=== PATIENT | female | born 1940 | race Caucasian/White ===

== ENCOUNTER → 2018-03-12 08:10 | Outpatient (CLI) | payer OTHER, SELFPAY ==
[2018-03-12 09:07] LABS: Add Manual Diff / Slide Review NO; Basophils Percent Auto 1.4 % (0-2); Eosinophils Percent Auto 4.9 % (2-4); Hematocrit 37.9 % (36-46); Hemoglobin 12.3 g/dL (12.0-16.0); Lymphocytes Percent Auto 42.6 % (25-40); Mean Corpuscular HGB Conc 32.3 % (30-36); Mean Corpuscular Hemoglobin 26.4 PG (26-34); Mean Corpuscular Volume 81.8 fL (80-100); Neutrophils Absolute Auto 2200 /uL (3000-5900); Neutrophils Percent Auto 41.1 % (50-75); Platelet Count 244 X10^3/uL (150-400); Red Blood Cell Count 4.64 X10^6/uL (4.0-5.2); Red Cell Distribution Width 17.9 % (11.6-14.8); White Blood Cell Count 5.4 X10^3/uL (4.5-11.0)
== END ==
PROVIDERS: PCP Family Medicine; Visit Provider Family Medicine
DX: D70.9 Neutropenia, unspecified (principal)
CPT/HCPCS: 36415; 85025

== ENCOUNTER → 2018-08-29 15:05 | Outpatient (CLI) | payer OTHER, SELFPAY ==
--- NOTE | 2018-08-29 | DI.RAD.S_ITS ---
This blank DEXA report has been sent in error by the PACS system. The correct and complete report will be forthcoming in 1-2 days. Thank you for your patience and understanding. Dictated by: Rodney Olivas M.D. on 08/29/2018 at 16:01 Approved by: Rodney Olivas M.D. on 08/29/2018 at 16:02
== END ==
PROVIDERS: PCP Family Medicine; Visit Provider Family Medicine
DX: Z13.820 Encounter for screening for osteoporosis (principal); M85.852 Other specified disorders of bone density and structure, left thigh; Z78.0 Asymptomatic menopausal state; Z82.62 Family history of osteoporosis; Z90.722 Acquired absence of ovaries, bilateral; Z85.43 Personal history of malignant neoplasm of ovary
CPT/HCPCS: 77080

== ENCOUNTER → 2018-09-12 18:53 | Outpatient (CLI) | payer OTHER, SELFPAY ==
--- NOTE | 2018-09-12 | DI.MRI.S_ITS ---
PROCEDURE: MR LUMBAR SPINE WO CON INDICATIONS: SCIATICA TECHNIQUE: Noncontrast sagittal T1 spin echo and T2 fast echo, sagittal STIR, axial T1 and T2 fast spin echo through the lumbar spine. In cases with scoliosis, additional coronal T2 fast spin echo may be performed. COMPARISON: None. FINDINGS: Image quality: Excellent. Alignment and Curvature: There is normal bony alignment. Bone Marrow: Mild reactive endplate changes noted adjacent to the L1-L2, L2-L3, L3-L4 and L4-L5 discs. No acute vertebral body compression fractures. Spinal Cord: Conus medullaris terminates at the L1 level. Visualized cord demonstrates normal signal and size. Paraspinous Soft Tissues: No paravertebral masses. L1-L2: Loss of disc signal and height. Minimal, diffuse disc bulge. No central stenosis. No neural foraminal narrowing. No neural impingement. L2-L3: Loss of disc signal and height. Mild, diffuse disc bulge. Mild bilateral facet hypertrophy. Mild ligamentum flavum hypertrophy. Mild narrowing of the central canal. No neural foraminal narrowing. No neural impingement. L3-L4: Loss of disc signal. Mild, diffuse disc bulge. Mild bilateral facet hypertrophy. Mild ligamentum flavum hypertrophy. Mild narrowing of the central canal. No neural foraminal narrowing. No neural impingement. L4-L5: Loss of disc signal and slight loss of disc height. Moderate, diffuse disc bulge. Right foraminal disc protrusion. Right foraminal disc protrusion abuts and slightly flattens the exiting right L4 nerve root. Mild to moderate bilateral facet hypertrophy. Moderate ligamentum flavum hypertrophy. Moderate narrowing of the central canal. There is a small, proxy 7 mm in diameter synovial cyst projecting off the medial margin of the right L4-L5 facet. Synovial cyst anteriorly displaces the traversing right L5 nerve root against the L4-L5 disc causing flattened deformity of the nerve root. Moderate right neural foraminal narrowing. L5-S1: Loss of disc signal. Mild bilateral facet hypertrophy. No central stenosis. IMPRESSION: 1. Multilevel degenerative disc disease. 2. Multilevel facet arthropathy. 3. Mild L2-L3 and L3-L4 central canal narrowing. Moderate L4-L5 central canal narrowing. 4. Moderate right L4-L5 neural foraminal narrowing. 5. Right foraminal L4-L5 disc protrusion impinges on the exiting right L4 nerve root. Please correlate clinically. 6. Right L4-L5 facet synovial cyst abuts and flattens the traversing right L5 nerve root. Please correlate clinically. Dictated by: Krystal Kelsey MD, PhD on 09/13/2018 at 10:57 Approved by: Krystal Kelsey MD, PhD on 09/13/2018 at 11:07
== END ==
PROVIDERS: PCP Family Medicine; Visit Provider Family Medicine
DX: M54.42 Lumbago with sciatica, left side (principal)
CPT/HCPCS: 72148

== ENCOUNTER → 2018-10-31 10:50 | Outpatient (CLI) | payer OTHER, SELFPAY ==
--- NOTE | 2018-10-31 10:52 | DI.RAD.S_ITS ---
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 COMPARISON: [facility], MR, MR LUMBAR SPINE WO CON, 09/12/2018, 19:08. FINDINGS: Bones: 5 nonrib-bearing vertebrae are present. There is moderate levoscoliosis; otherwise normal bony alignment. No vertebral body compression fractures. No suspicious bony lesions. There is degenerative disc disease, moderate at L1-L2, L2-L3 and L4-L5, mild to moderate at L3-L4 and L5-S1. There is severe facet arthropathy at L4-L5 and L5-S1. Arge left lateral Hospi's are noted in upper lumbar spine. Soft tissues: Overlying bowel gas pattern is normal. No suspicious soft tissue calcifications. Multiple surgical clips are present in mid abdomen. Oblique images: No pars defects. IMPRESSION: 1. Moderate scoliosis. 2. Degenerative disc and facet disease as described. Dictated by: Ramirez Plaza M.D. on 10/31/2018 at 13:14 Approved by: Ramirez Plaza M.D. on 10/31/2018 at 13:17
== END ==
PROVIDERS: PCP Family Medicine; Visit Provider Physical Medicine & Rehabilitation
DX: M51.16 Intervertebral disc disorders with radiculopathy, lumbar region (principal); M51.17 Intervertebral disc disorders with radiculopathy, lumbosacral region; M41.9 Scoliosis, unspecified; M47.26 Other spondylosis with radiculopathy, lumbar region; M47.27 Other spondylosis with radiculopathy, lumbosacral region
CPT/HCPCS: 72110

== ENCOUNTER 2018-11-12 08:53 | Outpatient (CLI) | payer OTHER, SELFPAY ==
[2018-11-12] VITALS (8 sets, daily range): BP systolic 88–124; BP diastolic 63–82; PULSE 57–94; RESP 16–18; TEMP 36; O2SAT 94–100
--- NOTE | 2018-11-12 08:54 | DI.RAD.S_ITS ---
PROCEDURE: PAIN L/S TRANSFORAMINAL INJECT INDICATIONS: L4 radiculopathy FINDINGS: Fluoroscopic spot filming was performed to verify placement of spinal needles at the L4-L5 level(s), as labeled on the films. Appropriate location(s) of the needle tip(s) was confirmed by injection of iodinated contrast. IMPRESSION: Fluoroscopy for pain management. Dictated by: Ramirez Plaza M.D. on 11/12/2018 at 13:08 Approved by: Ramirez Plaza M.D. on 11/12/2018 at 13:08
[2018-11-12] MEDS: MIDAZOLAM 5 MG/5 ML VIAL IV (09:47)
[2018-11-12] MEDS: BUPIVACAINE 0.25% (PF) VIAL 2 ML INJ (09:52)
[2018-11-12] MEDS: IOPAMIDOL 15 ML VIAL 3 ML INJ (09:53)
[2018-11-12] MEDS: DEXAMETHASONE 10 MG/ML VIAL 20 MG INJ (09:53)
--- NOTE | 2018-11-12 09:55 | PC.NURSE ---
ASSISTING PT OFF TABLE AND TRANSPORTING TO POST PROC AREA IN STABLE CONDITION
--- NOTE | 2018-11-12 10:02 | P.PCN_ITS ---
Procedures Date/Time Date of procedure: 11/12/18 Time of procedure: 10:01 General Procedure description: PREOP DIAGNOSIS 1. FORMAINAL STENOSIS WITH LE SYMPTOMS POST OP DIAGNOSIS 1. FORMAINAL STENOSIS WITH LE SYMPTOMS PROCEDURES 1. FLUOROSCOPICALLY GUIDED CONTRAST CONTROLLED TRANSFORAMINAL EPIDURAL STEROID INJECTION - RIGHT L4/5 TFESI PHYSICIAN: Pito Carpio DO INDICATIONS: Tracy is referred by Dr. Schmidt for treatment of HNP with Right LE Symptoms FINDINGS Foraminal Nerve Root Compression secondary to disc disease and facet hypertrophy DESCRIPTION OF PROCEDURE: Following denial of allergy and review of potential side effects and complications, including, but not necessarily limited to, infection, allergic reaction, local tissue breakdown, stroke, temporary or permanent nerve injury, paralysis, and possible , the patient indicated that the patient understood and agreed to proceed. An informed consent document was signed by the patient, witnessed by a nurse, and placed in the patient's chart. Additionally, other treatment options including medications, modalities, and physical therapy were reviewed with the patient. After review of previous anaesthesic history and IV conscious sedation the patient was deemed safe to proceed with todays procedure with IV conscious sedation as ASA class II designation. Safety time-out was performed to confirm patient ID, procedure to be performed and site of procedure. IV sedation was accomplished with a combination of 3mg of Versed was administered by the RN after DO order, titrated to patient comfort during the course of the procedure while the patient remained responsive to all verbal commands In the prone position following sterile prep and drape of the lumbar region, the Right L4/5 posterior neuroforamen was identified fluoroscopically. The skin was anesthetized via a 25-gauge 1.5-inch needle with 1% lidocaine solution. At this point, a 25-gauge 3.5-inch spinal needle was atraumatically introduced and advanced under fluoroscopic guidance through the posterior Right L4/5 neuroforamen to approximately the anterior aspect of the canal. Depth was confirmed on lateral view. Following negative aspiration, injection of approximately 1.5 cc of Isovue 200 under live fluoroscopy in the AP view confirmed excellent flow along the nerve root, into the epidural space without vascular or intrathecal uptake observed Radiological data, including multiple fluoroscopic views of the lumbosacral spine, reveal a spinal needle at the right L4/5 posterior neuroforamen. Subsequent views show flow of contrast material flowing superiorly and inferio rly along the nerve root confirming epidural flow. Subsequently, a test dose of 1.5 cc of 1% lidocaine solution was administered and patient was observed for two minutes for signs or symptoms of complications, including abdominal pain, shortness of breath, bilateral upper or lower extremity weakness, nausea and vomiting, prior to steroid injection. At this point, a total of 2cc or 20mg of dexamethasone was injected without incident. The procedure tolerated the procedure well without signs or symptoms of complications prior to transfer to the recovery area continued monitoring without incident.The patient was then transferred to the recovery area where they were observed for an appropriate time after the injection. The patient reported a VAS score of 7 prior to the procedure and a post- procedure VAS of 0. Total Fluoroscopy Time: 20.9 seconds Total Conscious Sedation Time: 24min POST OP INSTRUCTIONS The patient was provided a Pain Log to continue to record their response to the target-specific procedure prior to follow-up visit with their referring physician. Additionally, specific post-injection care instructions and a contact number to our office were provided if concerns arise regarding possible complications associated with the procedure are suspected. Pito Carpio DO Complications: none
--- NOTE | 2018-11-12 11:50 | PC.NURSE ---
pt returned from procedure at 1000 via wheelchair, awake and alert, able to move from w/c to chair without difficulty. Resumed monitoring from Loni RODRIGUEZ.
--- NOTE | 2018-11-13 12:16 | PC.NURSE ---
FOLLOW UP CALL MADE, SPOKE WITH SPOUSE PT IS OUT OF THE HOUSE. SPOUSE STATED PT FEELS GREAT AND DENIES THAT SHE HAS ANY CONCERNS AT THIS TIME. I REMINDED HIM SHE HAS OUR NUMBER IF SHE DOES HAVE QUESTIONS/CONCERNS.
== END 2018-11-12 10:30 ==
LOC: RAD 08:53
PROVIDERS: PCP Family Medicine; Visit Provider Physical Medicine & Rehabilitation
DX: M48.061 Spinal stenosis, lumbar region without neurogenic claudication (principal); M51.16 Intervertebral disc disorders with radiculopathy, lumbar region; M47.27 Other spondylosis with radiculopathy, lumbosacral region; M41.50 Other secondary scoliosis, site unspecified
CPT/HCPCS: 64483; 99152; J1100; J2250

== ENCOUNTER → 2019-01-02 11:47 | Outpatient (CLI) | payer OTHER, SELFPAY ==
--- NOTE | 2019-01-02 | DI.MG.S_ITS ---
BILATERAL DIGITAL SCREENING MAMMOGRAM 3D/2D WITH CAD: 01/02/2019 CLINICAL: Routine screening. Comparison is made to exams dated: 12/29/2017 mammogram, 12/08/2016 mammogram, and 11/29/2015 mammogram - [facility]. There are scattered fibroglandular elements in both breasts. Current study was also evaluated with a Computer Aided Detection (CAD) system. There are benign calcifications in both breasts. No significant masses, calcifications, or other findings are seen in either breast. There has been no significant interval change. IMPRESSION: There is no mammographic evidence of malignancy. A 1 year screening mammogram is recommended. This exam was interpreted at Station ID: [id number]. NOTE: For mammograms, a report in lay terms will be sent to the patient. Approximately 15% of breast malignancies will not be visualized mammographically. In the management of a palpable breast mass, a negative mammogram must not discourage biopsy of a clinically suspicious lesion. Electronically Signed By: Inocencio ojeda/[email or web address]:01/02/2019 21:12:38 letter sent: Normal Exam ACR BI-RADS Category 2: Benign Finding(s) [id number]
== END ==
PROVIDERS: PCP Family Medicine; Visit Provider Family Medicine
DX: Z12.31 Encounter for screening mammogram for malignant neoplasm of breast (principal)
CPT/HCPCS: 77063; 77067

== ENCOUNTER → 2019-01-31 07:19 | Outpatient (CLI) | payer OTHER, SELFPAY ==
[2019-01-31 08:06] LABS: Add Manual Diff / Slide Review NO; Basophils Absolute Auto 0 /uL (0-100); Basophils Percent Auto 0.7 % (0-2); Eosinophils Absolute Auto 300 /uL (0-450); Eosinophils Percent Auto 6.1 % (2-4); Hematocrit 31.5 % (36-46); Hemoglobin 9.7 g/dL (12.0-16.0); Lymphocytes Absolute Auto 2000 /uL (1100-4500); Lymphocytes Percent Auto 41.3 % (25-40); Mean Corpuscular HGB Conc 30.9 % (30-36); Mean Corpuscular Hemoglobin 20.9 PG (26-34); Mean Corpuscular Volume 67.5 fL (80-100); Monocytes Absolute Auto 600 /uL (0-900); Monocytes Percent Auto 12.6 % (3-14); Neutrophils Absolute Auto 1900 /uL (1500-7000); Neutrophils Percent Auto 39.3 % (50-75); Platelet Count 266 X10^3/uL (150-400); Red Blood Cell Count 4.66 X10^6/uL (4.0-5.2); Red Cell Distribution Width 21.5 % (11.6-14.8); White Blood Cell Count 4.9 X10^3/uL (4.5-11.0)
[2019-01-31 08:31] LABS: Hypochromasia 2+; Microcytosis 3+; Polychromasia 1+
[2019-01-31 08:50] LABS: Alanine Aminotransferase 19 IU/L (9-52); Albumin 4.3 g/dL (3.5-5.0); Albumin Globulin Ratio 1.3 (1.0-2.8); Alkaline Phosphatase 56 U/L (38-126); Aspartate Aminotransferase 27 IU/L (14-36); BUN Creatinine Ratio 23.8 (6-22); Bilirubin Total 0.9 mg/dL (0.2-1.3); Blood Urea Nitrogen 19 mg/dL (7-17); Calcium 9.2 mg/dL (8.4-10.2); Carbon Dioxide 29 mmol/L (22-32); Chloride 98 mmol/L (98-107); Cholesterol 129 mg/dL (140-199); Estimated Glomerular Filt Rate > 60.0 mL/min (>60); Globulin 3.3 g/dL (1.7-4.1); Glucose 102 mg/dL (80-110); HDL Cholesterol 36 mg/dL (40-60); HEMOLYSIS < 15 (0-50); LDL Cholesterol Calculated 67 mg/dL (<100); Sodium 137 mmol/L (137-145); Total Protein 7.6 g/dL (6.3-8.2); Triglycerides 131 mg/dL (35-150)
[2019-01-31 10:06] LABS: Thyroid Stimulating Hormone 2.73 uIU/mL (0.47-4.68)
== END ==
PROVIDERS: PCP Family Medicine; Visit Provider Family Medicine
DX: E78.5 Hyperlipidemia, unspecified (principal); I10 Essential (primary) hypertension; D70.9 Neutropenia, unspecified; Z00.00 Encounter for general adult medical examination without abnormal findings
CPT/HCPCS: 36415; 80053; 80061; 84443; 85025

== ENCOUNTER 2019-03-25 08:06 | Outpatient (CLI) | payer OTHER, SELFPAY ==
[2019-03-25] VITALS (9 sets, daily range): BP systolic 91–126; BP diastolic 37–70; PULSE 56–63; RESP 16; TEMP 36.1; O2SAT 93–100
--- NOTE | 2019-03-25 08:07 | DI.RAD.S_ITS ---
PROCEDURE: PAIN L/SI FACET INJ/BLK 1STL INDICATIONS: RADICULOPATHY FINDINGS: Fluoroscopic spot filming was performed to verify placement of spinal needles at the right L3-L4 and L4-L5 level(s), as labeled on the films. Appropriate location(s) of the needle tip(s) was confirmed by injection of iodinated contrast. IMPRESSION: Intraprocedural examination within normal limits. Dictated by: Edwin Santiago M.D. on 03/25/2019 at 12:27 Approved by: Edwin Santiago M.D. on 03/25/2019 at 12:27
[2019-03-25] MEDS: MIDAZOLAM 5 MG/5 ML VIAL IV (09:28)
[2019-03-25] MEDS: fentaNYL 100 MCG/2 ML INJ 50 MCG IV (09:28)
[2019-03-25] MEDS: BETAMETHASONE 30 MG/5 ML MDV 12 MG INJ (09:33)
[2019-03-25] MEDS: BUPIVACAINE 0.5% (PF) VIAL 2 ML INJ (09:33)
[2019-03-25] MEDS: LIDOCAINE 1% 20 ML INJ 10 ML INJ (09:33)
[2019-03-25] MEDS: IOPAMIDOL 15 ML VIAL 3 ML INJ (09:33)
--- NOTE | 2019-03-25 09:34 | PC.NURSE ---
assisting pt off table and transporting to post proc area in stable condition
--- NOTE | 2019-03-25 09:41 | P.PCN_ITS ---
Procedures Date/Time Date of procedure: 03/25/19 Time of procedure: 09:40 General Procedure description: PREOP DIAGNOSIS 1. FACET ARTHROPATHY, 2. AXIAL LBP, 3. MULTILEVEL DDD, POST OP DIAGNOSIS 1. FACET ARTHROPATHY, 2. AXIAL LBP, 3. MULTILEVEL DDD, PROCEDURES 1. FLUORSCOPICALLY GUIDED CONTRAST CONTROLLED FACET JOINT INJECTIONS RIGHT L3/4, L4/5 SURGEON: Pito Carpio, DO INDICATIONS Tracy is referred by for treatment of Axial LBP FINDINGS Multilevel Facet Arthropathy with Clinically significant axial LBP DESCRIPTION OF PROCEDURE Fluoroscopically guided, contrast-controlled right L3/4, L4/5 facet joint i njections. Following review of allergy and review of potential side effects and complications, including, but not necessarily limited to, infection, allergic reaction, local tissue breakdown, stroke, temporary or permanent nerve injury, paralysis, and possible , the patient indicated that the patient understood and agreed to proceed. An informed consent document was signed by the patient, witnessed by a nurse, and placed in the patient's chart. Additionally, other treatment options including medications, modalities, and physical therapy were reviewed with the patient. After review of previous anaesthesic history and IV conscious sedation the patient was deemed safe to proceed with todays procedure with IV conscious sedation as ASA class II designation. Safety time-out was performed to confirm patient ID, procedure to be performed and site of procedure. IV sedation was accomplished with a combination of 3mg of Versed and 50mcg of Fentanyl was administered by the RN after DO order, titrated to patient comfort during the course of the procedure while the patient remained responsive to all verbal commands. In the prone position, following sterile prep and drape of the lumbar region, the posterior aspect of the right L3/4, L4/5 facet joints were identified fluoroscopically. The skin was anesthetized via a 25-gauge 1.5-inch needle with 1% lidocaine solution into the corresponding facet joints. At this point, a 22- gauge 3.5-inch spinal needle was atraumatically introduced and advanced under fluoroscopic guidance into the corresponding facet joints. Following negative aspiration, injections of approximately 0.2-cc of Isovue 200 confirmed interarticular placement without vascular uptake. Radiological data, including multiple fluoroscopic views of the lumbosacral spine, reveal a spinal needle at the right L3/4, L4/5 facet joints. Subsequent views show flow of contrast material both superiorly and inferiorly within the joint space without vascular or intrathecal uptake. At this point, a total of 0.5 cc including a mixture of 0.25 cc Marcaine and 0.25 cc betamethasone was injected without complication into each of the corresponding facet joints. The patient tolerated the procedure well without signs or symptoms of complications prior to transfer to the recovery area for further monitoring. The patient was then transferred to the recovery area where they were observed for an appropriate period of time after the injection. The patient reported a VAS score of 7 prior to the procedure and a post-procedure VAS of 0. Total Fluoroscopy Time: 12.7 seconds Total Conscious Sedation Time: 24min POST OP INSTRUCTIONS The patient was provided a Pain Log to continue to record their response to the target-specific procedure prior to follow-up visit with their referring physician. Additionally, specific post-injection care instructions and a contact number to our office were provided if concerns arise regarding possible complications associated with the procedure are suspected Complications: none
--- NOTE | 2019-03-25 09:41 | PC.NURSE ---
Pt returned via wheelchair awake and alert, able to move from w/c to chair with standby assist. Resumed monitoring from Loni RODRIGUEZ.
== END 2019-03-25 10:19 ==
LOC: RAD 08:07
PROVIDERS: PCP Student in an Organized Health Care Education/Training Program; Visit Provider Physical Medicine & Rehabilitation
DX: M47.816 Spondylosis without myelopathy or radiculopathy, lumbar region (principal); M51.36 Other intervertebral disc degeneration, lumbar region; M54.5 Low back pain
CPT/HCPCS: 64493; 64494; 99152; J0702; J2250; J3010

== ENCOUNTER 2019-05-15 09:04 | Outpatient (CLI) | payer OTHER, SELFPAY ==
[2019-05-15] VITALS (8 sets, daily range): BP systolic 105–142; BP diastolic 56–89; PULSE 56–65; RESP 16; TEMP 36.3; O2SAT 95–99
--- NOTE | 2019-05-15 09:06 | DI.RAD.S_ITS ---
PROCEDURE: PAIN L/S TRANSFORAMINAL INJECT INDICATIONS: Pain FINDINGS: Fluoroscopic spot filming was performed to verify placement of spinal needles at the L4-5 level(s), as labeled on the films. Appropriate location(s) of the needle tip(s) was confirmed by injection of iodinated contrast. IMPRESSION: Fluoroscopic needle placement as above. Dictated by: Elen Nicholas M.D. on 05/15/2019 at 18:27 Approved by: Elen Nicholas M.D. on 05/15/2019 at 18:27
[2019-05-15] MEDS: fentaNYL 100 MCG/2 ML INJ 50 MCG IV (10:00)
[2019-05-15] MEDS: MIDAZOLAM 5 MG/5 ML VIAL IV (10:00)
[2019-05-15] MEDS: IOPAMIDOL 15 ML VIAL 3 ML INJ (10:09)
[2019-05-15] MEDS: BETAMETHASONE 30 MG/5 ML MDV 12 MG INJ (10:09)
--- NOTE | 2019-05-15 10:19 | P.PCN_ITS ---
Procedures Date/Time Date of procedure: 05/15/19 Time of procedure: 10:19 General Procedure description: PREOP DIAGNOSIS 1. FORMAINAL STENOSIS WITH LE SYMPTOMS POST OP DIAGNOSIS 1. FORMAINAL STENOSIS WITH LE SYMPTOMS PROCEDURES 1. FLUOROSCOPICALLY GUIDED CONTRAST CONTROLLED TRANSFORAMINAL EPIDURAL STEROID INJECTION - RIGHT L4/5 TFESI PHYSICIAN: Pito Carpio DO INDICATIONS: Tracy is referred by for treatment of Foraminal Stenosis with Right LE Symptoms FINDINGS Foraminal Nerve Root Compression secondary to disc disease and facet hypertrophy DESCRIPTION OF PROCEDURE: Following review of allergy and review of potential side effects and complications, including, but not necessarily limited to, infection, allergic reaction, local tissue breakdown, stroke, temporary or permanent nerve injury, paralysis, and possible , the patient indicated that the patient understood and agreed to proceed. An informed consent document was signed by the patient, witnessed by a nurse, and placed in the patient's chart. Additionally, other treatment options including medications, modalities, and physical therapy were reviewed with the patient. After review of previous anaesthesic history and IV conscious sedation the patient was deemed safe to proceed with todays procedure with IV conscious sedation as ASA class II designation. Safety time-out was performed to confirm patient ID, procedure to be performed and site of procedure. IV sedation was accomplished with a combination of 2mg of Versed and 50mcg of Fentanyl was administered by the RN after DO order, titrated to patient comfort during the course of the procedure while the patient remained responsive to all verbal commands In the prone position following sterile prep and drape of the lumbar region, the Right L4/5 posterior neuroforamen was identified fluoroscopically. The skin was anesthetized via a 25-gauge 1.5-inch needle with 1% lidocaine solution. At this point, a 25-gauge 3.5-inch spinal needle was atraumatically introduced and adva nced under fluoroscopic guidance through the posterior Right L4/5 neuroforamen to approximately the anterior aspect of the canal. Depth was confirmed on lateral view. Following negative aspiration, injection of approximately 1.5 cc of Isovue 200 under live fluoroscopy in the AP view confirmed excellent flow along the nerve root, into the epidural space without vascular or intrathecal uptake observed Radiological data, including multiple fluoroscopic views of the lumbosacral spine, reveal a spinal needle at the right L4/5 posterior neuroforamen. Subsequent views show flow of contrast material flowing superiorly and inferiorly along the nerve root confirming epidural flow. Subsequently, a test dose of 1.5 cc of 1% lidocaine solution was administered and patient was observed for two minutes for signs or symptoms of complications, including abdominal pain, shortness of breath, bilateral upper or lower extremity weakness, nausea and vomiting, prior to steroid injection. At this po int, a total of 3cc or 20mg of dexamethasone and 6mg of betamethasone was injected without incident. The procedure tolerated the procedure well without signs or symptoms of complications prior to transfer to the recovery area continued monitoring without incident.The patient was then transferred to the recovery area where they were observed for an appropriate time after the injection. The patient reported a VAS score of 7 prior to the procedure and a post- procedure VAS of 0. Total Fluoroscopy Time: 20.9 seconds Total Conscious Sedation Time: 24min POST OP INSTRUCTIONS The patient was provided a Pain Log to continue to record their response to the target-specific procedure prior to follow-up visit with their referring physician. Additionally, specific post-injection care instructions and a contact number to our office were provided if concerns arise regarding possible complications associated with the procedure are suspected. Pito Carpio, Complications: none
--- NOTE | 2019-05-15 10:19 | PC.NURSE ---
pt tolerated procedure well. Able to get off the table with standby assist. Transferred pt via wheelchair to pre procedure room for continued monitorin with Loni RODRIGUEZ.
--- NOTE | 2019-05-15 10:27 | PC.NURSE ---
ACCEPTED CARE OF PT IN POST PROC AREA IN STABLE CONDITION
[2019-05-15] MEDS: BUPIVACAINE 0.25% (PF) VIAL 2 ML INJ (10:32)
[2019-05-15] MEDS: DEXAMETHASONE 10 MG/ML VIAL 20 MG INJ (10:32)
== END 2019-05-15 11:41 | disposition home or self-care (01) ==
LOC: RAD 09:06
PROVIDERS: Family Provider Student in an Organized Health Care Education/Training Program; PCP Student in an Organized Health Care Education/Training Program; Visit Provider Physical Medicine & Rehabilitation
DX: M48.061 Spinal stenosis, lumbar region without neurogenic claudication (principal); M51.16 Intervertebral disc disorders with radiculopathy, lumbar region; M47.27 Other spondylosis with radiculopathy, lumbosacral region
CPT/HCPCS: 64483; 99152; J0702; J1100; J2250; J3010

== ENCOUNTER 2020-05-23 19:15 | Emergency (ER) | payer OTHER, SELFPAY ==
[2020-05-23] VITALS (7 sets, daily range): BP systolic 129–154; BP diastolic 69–77; PULSE 92–112; RESP 20–24; TEMP 37.3–37.5; O2SAT 92–94; BMI 33.9
--- NOTE | 2020-05-23 19:33 | ED.FEMALEGU ---
HPI - Female Genitourinary <NOAM Ralph - Last Filed: 05/23/20 21:21> General Chief complaint: Urogenital-Female Stated complaint: thinks she has a UTI Time Seen by Provider: 05/23/20 19:18 Source: patient Mode of arrival: Ambulatory Limitations: no limitations History of Present Illness HPI Narrative: This is a 80-year-old female, who has history of hyperlipidemia, hypertension, anemia, presents to ED with spouse with chief complain of feeling crummy with body aches for last couple of days and today she developed urinary burning discomfort and feeling feverish with Tmax of 99.3 at home. Patient reports her symptoms are similar to previous UTI/bladder infection including body aches. Patient denies chills, nausea or vomiting, or flank pain. Patient denies recent travel or known exposure to person who has COVID-19. Related Data Home Medications Medication Instructions Recorded Confirmed aspirin [Tavon Advanced] 250 mg PO Q DAY #0 10/03/16 08/25/19 atenolol 25 mg tablet 25 mg PO DAILY 03/04/19 08/25/19 estradiol 1 mg tablet 1 mg PO .every other day tab 03/04/19 08/25/19 hydrochlorothiazide 12.5 mg capsule 12.5 mg PO DAILY 03/04/19 08/25/19 lisinopril 30 mg tablet 30 mg PO DAILY 03/04/19 08/25/19 simvastatin 10 mg tablet 10 mg PO BEDTIME 03/04/19 08/25/19 Previous Rx's Medication Instructions Recorded Disabled Parking Permit #1 each 04/09/19 gabapentin 100 mg capsule 100 mg PO BID #120 cap MDD 1-3 up 05/28/19 to twice a day duloxetine 20 mg capsule,delayed 20 mg PO .COMPLEX #90 cap MDD 60 mg 06/11/19 release estradiol See Rx Instructions .ROUTE 04/26/20 .COMPLEX #42.5 gram cephalexin [Keflex] 500 mg PO BID 7 Days #14 cap 05/23/20 Allergies Allergy/AdvReac Type Severity Reaction Status Date / Time meclizine Allergy Intermediate Hives Verified 08/25/19 09:44 Review of Systems <NOAM Ralph - Last Filed: 05/23/20 21:21> Review of Systems Narrative: General: See HPI HEENT: Denies sinus pain, ear pain, sore throat, difficulty swallowing, dizziness. Respiratory: Denies dyspnea, cough, wheezing, hemoptysis, sputum. Cardiovascular: Denies chest pain, palpitations, orthopnea, edema. Gastrointestinal: Denies nausea, vomiting, abdominal pain, diarrhea, constipation, melena. : See HPI Musculoskeletal: See HPI Skin: Denies rash, skin lesions, or other. Neurologic: Denies weakness, headache, numbness, change in speech, confusion, seizures, incoordination. Psychiatric: No concerning psychosocial issues. 12-point review of systems is negative except for those stated above. 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 Head: Normal cephalic, atraumatic. No scalp or temporal tenderness, palpable mass or rash. EYES: Pupils are equal, round, and reactive to light and accommodation. Extraocular muscles are intact bilaterally. There is no subconjunctival hemorrhage, exudate and sclera non-icteric. ENT: Hearing grossly intact. Nose without bleeding, purulent discharge or deviation. Airway patent. Dried oral mucous membrane. Neck: Trachea in midline. No JVD, non-tender without lymphadenopathy. No masses or thyroid megaly. Supple, non-tender and no meningeal signs. CARDIAC: Normal regular rate and rhythm without murmurs, gallops, or rubs. No chest wall tenderness. No peripheral edema, cyanosis or pallor. Capillary refill is less than 2 seconds. RESPIRATORY: Lungs are clear to auscultate bilaterally. No cough, wheezes, rales, or rhonchi. No stridor, respiratory distress, increase work of breathing, or accessary muscle used. ABD: Abdomen soft, nontender and non-distended. No guarding or rebound tenderness to palpate. Bowel sounds are normal in all 4 quadrants. There is no palpable masses or organomegaly. EXT: Full painless ROM of all extremities with no loss of sensation, strength, effusion or edema. SKIN: Warm, dry, normal color for patient. No erythema, lesions or rash over visible areas. BACK: Nontender without deformity or crepitance. No flank tenderness. NEUROLOGICAL: Alert and oriented to place, time and person. Sensation and motor function intact bilaterally. No facial droops, dysphasia. PSYCHIATRIC: Good judgement and reason, without hallucinations, abnormal affect or abnormal behaviors during the examination. Patient is not suicidal. Initial Vital Signs Initial Vital Signs: Vital Signs Pulse Rate 112 H 05/23/20 19:24 Blood Pressure 129/77 05/23/20 19:24 Pulse Oximetry 92 05/23/20 19:24 <Meño Strong DO - Last Filed: 05/23/20 23:09> Initial Vital Signs Initial Vital Signs: Vital Signs Pulse Rate 112 H 05/23/20 19:24 Blood Pressure 129/77 05/23/20 19:24 Pulse Oximetry 92 05/23/20 19:24 Scores <NOAM Ralph - Last Filed: 05/23/20 21:21> GCS [place] coma scale eye opening: Spontaneous [place] coma scale verbal response: Orientated [place] coma scale motor response: Obey commands [place] coma scale total score: 15 qSOFA Altered Mental Status (GCS <15): No Respiratory rate greater than/equal to 22: No Systolic blood pressure less than or equal to 100: No qSOFA Total: 0 0-1 Not High Risk 1-3 High risk Course <NOAM Ralph - Last Filed: 05/23/20 21:21> Orders Ordered: ED Orders 05/23/20 19:26 Urine Culture Stat Urine Microscopic Stat 05/23/20 19:42 Blood Culture Stat Complete Blood Count AUTO DIFF Stat Comprehensive Metabolic Panel Stat Lactate (Lactic Acid) Stat Procalcitonin Stat Discontinued Medications Acetaminophen (Tylenol) 650 mg PO NOW ONE Stop: 05/23/20 19:32 Last Admin: 05/23/20 19:42 Dose: 650 mg Documented by: KARYNA Sodium Chloride (Normal Saline 0.9%) 500 mls @ 1,000 mls/hr IV BOLUS ONE Stop: 05/23/20 20:00 Last Infusion: 05/23/20 20:17 Dose: 0 mls/hr Documented by: Admin: 05/23/20 19:41 Dose: 1,000 mls/hr Documented by: KARYNA Ceftriaxone Sodium/Dextrose (Rocephin) 1 gm in 50 mls @ 100 mls/hr IV NOW ONE Stop: 05/23/20 20:43 Last Infusion: 05/23/20 20:53 Dose: 0 mls/hr Documented by: Admin: 05/23/20 20:23 Dose: 100 mls/hr Documented by: ROMEO Ketorolac Tromethamine (Toradol) 15 mg IV NOW ONE Stop: 05/23/20 20:15 Last Admin: 05/23/20 20:22 Dose: 15 mg Documented by: ROMEO Vital Signs Vital signs: Vital Signs - 8 hr 05/23/20 19:24 05/23/20 19:26 05/23/20 19:30 Temperature 99.5 F Pulse Rate 112 H 110 H 104 H Respiratory Rate 20 22 Blood Pressure 129/77 129/77 Pulse Oximetry 92 93 94 05/23/20 20:00 05/23/20 20:30 05/23/20 20:47 Temperature Pulse Rate 98 H 93 H 92 H Respiratory Rate 24 23 20 Blood Pressure 154/69 H Pulse Oximetry 92 93 94 05/23/20 20:50 Temperature 99.2 F Pulse Rate Respiratory Rate Blood Pressure Pulse Oximetry <Meño Strong DO - Last Filed: 05/23/20 23:09> Orders Ordered: ED Orders 05/23/20 19:26 Urine Culture Stat Urine Microscopic Stat 05/23/20 19:42 Blood Culture Stat Complete Blood Count AUTO DIFF Stat Comprehensive Metabolic Panel Stat Lactate (Lactic Acid) Stat Procalcitonin Stat Discontinued Medications Acetaminophen (Tylenol) 650 mg PO NOW ONE Stop: 05/23/20 19:32 Last Admin: 05/23/20 19:42 Dose: 650 mg Documented by: KARYNA Sodium Chloride (Normal Saline 0.9%) 500 mls @ 1,000 mls/hr IV BOLUS ONE Stop: 05/23/20 20:00 Last Infusion: 05/23/20 20:17 Dose: 0 mls/hr Documented by: Admin: 05/23/20 19:41 Dose: 1,000 mls/hr Documented by: KARYNA Ceftriaxone Sodium/Dextrose (Rocephin) 1 gm in 50 mls @ 100 mls/hr IV NOW ONE Stop: 05/23/20 20:43 Last Infusion: 05/23/20 20:53 Dose: 0 mls/hr Documented by: Admin: 05/23/20 20:23 Dose: 100 mls/hr Documented by: ROMEO Ketorolac Tromethamine (Toradol) 15 mg IV NOW ONE Stop: 05/23/20 20:15 Last Admin: 05/23/20 20:22 Dose: 15 mg Documented by: ROMEO Vital Signs Vital signs: Vital Signs - 8 hr 05/23/20 19:24 05/23/20 19:26 05/23/20 19:30 Temperature 99.5 F Pulse Rate 112 H 110 H 104 H Respiratory Rate 20 22 Blood Pressure 129/77 129/77 Pulse Oximetry 92 93 94 05/23/20 20:00 05/23/20 20:30 05/23/20 20:47 Temperature Pulse Rate 98 H 93 H 92 H Respiratory Rate 24 23 20 Blood Pressure 154/69 H Pulse Oximetry 92 93 94 05/23/20 20:50 Temperature 99.2 F Pulse Rate Respiratory Rate Blood Pressure Pulse Oximetry MDM - Female Genitourinary <NOAM Ralph - Last Filed: 05/23/20 21:21> Differential Diagnosis Differential diagnosis: Likely urinary tract infection and other (Pyelonephritis, sepsis) Medical Records Attestation: I reviewed the patient's medical records. Lab Data Attestation: I reviewed the patient's lab results. Result diagrams: 05/23/20 19:42 05/23/20 19:42 Labs: Lab Results 05/23/20 05/23/20 05/23/20 Range/Units 19:26 19:42 19:42 WBC 6.0 (4.5-11.0) X10^3/uL RBC 4.51 (4.0-5.2) X10^6/uL Hgb 15.1 (12.0-16.0) g/dL Hct 44.2 (36-46) % MCV 98.1 (80-100) fL MCH 33.5 (26-34) PG MCHC 34.1 (30-36) % RDW 13.1 (11.6-14.8) % Plt Count 135 L (150-400) X10^3/uL Neut % (Auto) 40.0 L (50-75) % Lymph % (Auto) 44.9 H (25-40) % [place] % (Auto) 12.4 (3-14) % Eos % (Auto) 1.8 L (2-4) % Baso % (Auto) 0.9 (0-2) % Neut # (Auto) 2400 (6826-7720) /uL Lymph # (Auto) 2700 (4678-5212) /uL [place] # (Auto) 700 (0-900) /uL Eos # (Auto) 100 (0-450) /uL Baso # (Auto) 100 (0-100) /uL Sodium 134 L (137-145) mmol/L Potassium 3.7 (3.4-5.1) mmol/L Chloride 97 L (98-107) mmol/L Carbon Dioxide 31 (22-32) mmol/L BUN 16 (7-17) mg/dL Creatinine 0.67 (0.52-1.04) mg/dL Estimated GFR > 60.0 (>60) mL/min BUN/Creatinine Ratio 23.9 H (6-22) Glucose 151 H (80-110) mg/dL Lactate (0.7-2.1) mmol/L Calcium 9.4 (8.4-10.2) mg/dL Total Bilirubin 0.6 (0.2-1.3) mg/dL AST 57 H (14-36) IU/L ALT 69 H (<35) IU/L Alkaline Phosphatase 69 (38-126) U/L Total Protein 7.7 (6.3-8.2) g/dL Albumin 4.0 (3.5-5.0) g/dL Globulin 3.7 (1.7-4.1) g/dL Albumin/Globulin Ratio 1.1 (1.0-2.8) Procalcitonin (<0.5) ng/mL Urine RBC None seen (0-5/HPF) Urine WBC 10-30/hpf H (0-5/HPF) Ur Squamous Epith Cells 1-5 /hpf (0-5/HPF) Urine Bacteria Moderate (10-30) H (None) Ur Culture Indicated? Specimen cultured 05/23/20 05/23/20 Range/Units 19:42 19:42 WBC (4.5-11.0) X10^3/uL RBC (4.0-5.2) X10^6/uL Hgb (12.0-16.0) g/dL Hct (36-46) % MCV (80-100) fL MCH (26-34) PG MCHC (30-36) % RDW (11.6-14.8) % Plt Count (150-400) X10^3/uL Neut % (Auto) (50-75) % Lymph % (Auto) (25-40) % [place] % (Auto) (3-14) % Eos % (Auto) (2-4) % Baso % (Auto) (0-2) % Neut # (Auto) (2534-2361) /uL Lymph # (Auto) (1155-9316) /uL [place] # (Auto) (0-900) /uL Eos # (Auto) (0-450) /uL Baso # (Auto) (0-100) /uL Sodium (137-145) mmol/L Potassium (3.4-5.1) mmol/L Chloride (98-107) mmol/L Carbon Dioxide (22-32) mmol/L BUN (7-17) mg/dL Creatinine (0.52-1.04) mg/dL Estimated GFR (>60) mL/min BUN/Creatinine Ratio (6-22) Glucose (80-110) mg/dL Lactate 1.4 (0.7-2.1) mmol/L Calcium (8.4-10.2) mg/dL Total Bilirubin (0.2-1.3) mg/dL AST (14-36) IU/L ALT (<35) IU/L Alkaline Phosphatase (38-126) U/L Total Protein (6.3-8.2) g/dL Albumin (3.5-5.0) g/dL Globulin (1.7-4.1) g/dL Albumin/Globulin Ratio (1.0-2.8) Procalcitonin 0.11 (<0.5) ng/mL Urine RBC (0-5/HPF) Urine WBC (0-5/HPF) Ur Squamous Epith Cells (0-5/HPF) Urine Bacteria (None) Ur Culture Indicated? Urine Dip Bedside Urine Glucose Negative Bedside Urine Bilirubin - Negative Bedside Urine Ketone - Negative Urine Specific [place] 1.010 Bedside Urine Occult Blood - Negative Bedside Urine pH 6.5 Bedside Urine Protein - Negative Bedside Urine Urobilinogen - Negative Bedside Urine Nitrite - Negative Bedside Urine Leukocytes +++ 500 Esterase MDM Narrative Medical decision making narrative: This is a 80 year female who presents to ED with urinary burning sensation and body aches and joint pain for last 2 days. Patient reports occasional UTIs and the last one was 5 years ago and reports has similar symptoms in the past with body aches and joint pain. Patient denies vomiting or flank pain. Patient reports T-max as 99.3 F at home. Given Initial vital signs at triage with heart rate greater than 112 with temperature as 99.5 F, concerned for urosepsis. CBC without leukocytosis. Normal lactate and procalcitonin. Slightly decreased sodium and chloride today. Urine test shows 3+ urine leukoesterase and negative nitrites with moderate urine WBC of 10-30/hpf and moderate urine bacteria. Urine culture is pending. With patient's advanced age, mildly elevated temperature with tachycardia, patient was medicated with IV Rocephin 1 g with IV fluid 500 ml for UTI. Patient was also medicated with Tylenol and IV Toradol for discomfort in ED. patient's heart rate has improved to 90s with slightly elevated BP as 154/69. Patient reports discomfort has not completely resolved at this time. Patient discharged to home with Keflex b.i.d. course for 7 day duration and advised to start tomorrow. Patient advised to follow-up with Dr. Blackwell next week for follow-up. Return precautions were discussed with patient and patient verbalized understanding and agreement with the treatment plan. <Meño Strong DO - Last Filed: 05/23/20 23:09> Lab Data Labs: Lab Results 05/23/20 05/23/20 05/23/20 Range/Units 19:26 19:42 19:42 WBC 6.0 (4.5-11.0) X10^3/uL RBC 4.51 (4.0-5.2) X10^6/uL Hgb 15.1 (12.0-16.0) g/dL Hct 44.2 (36-46) % MCV 98.1 (80-100) fL MCH 33.5 (26-34) PG MCHC 34.1 (30-36) % RDW 13.1 (11.6-14.8) % Plt Count 135 L (150-400) X10^3/uL Neut % (Auto) 40.0 L (50-75) % Lymph % (Auto) 44.9 H (25-40) % [place] % (Auto) 12.4 (3-14) % Eos % (Auto) 1.8 L (2-4) % Baso % (Auto) 0.9 (0-2) % Neut # (Auto) 2400 (0257-7618) /uL Lymph # (Auto) 2700 (3687-5969) /uL [place] # (Auto) 700 (0-900) /uL Eos # (Auto) 100 (0-450) /uL Baso # (Auto) 100 (0-100) /uL Sodium 134 L (137-145) mmol/L Potassium 3.7 (3.4-5.1) mmol/L Chloride 97 L (98-107) mmol/L Carbon Dioxide 31 (22-32) mmol/L BUN 16 (7-17) mg/dL Creatinine 0.67 (0.52-1.04) mg/dL Estimated GFR > 60.0 (>60) mL/min BUN/Creatinine Ratio 23.9 H (6-22) Glucose 151 H (80-110) mg/dL Lactate (0.7-2.1) mmol/L Calcium 9.4 (8.4-10.2) mg/dL Total Bilirubin 0.6 (0.2-1.3) mg/dL AST 57 H (14-36) IU/L ALT 69 H (<35) IU/L Alkaline Phosphatase 69 (38-126) U/L Total Protein 7.7 (6.3-8.2) g/dL Albumin 4.0 (3.5-5.0) g/dL Globulin 3.7 (1.7-4.1) g/dL Albumin/Globulin Ratio 1.1 (1.0-2.8) Procalcitonin (<0.5) ng/mL Urine RBC None seen (0-5/HPF) Urine WBC 10-30/hpf H (0-5/HPF) Ur Squamous Epith Cells 1-5 /hpf (0-5/HPF) Urine Bacteria Moderate (10-30) H (None) Ur Culture Indicated? Specimen cultured 05/23/20 05/23/20 Range/Units 19:42 19:42 WBC (4.5-11.0) X10^3/uL RBC (4.0-5.2) X10^6/uL Hgb (12.0-16.0) g/dL Hct (36-46) % MCV (80-100) fL MCH (26-34) PG MCHC (30-36) % RDW (11.6-14.8) % Plt Count (150-400) X10^3/uL Neut % (Auto) (50-75) % Lymph % (Auto) (25-40) % [place] % (Auto) (3-14) % Eos % (Auto) (2-4) % Baso % (Auto) (0-2) % Neut # (Auto) (3768-0881) /uL Lymph # (Auto) (0658-7115) /uL [place] # (Auto) (0-900) /uL Eos # (Auto) (0-450) /uL Baso # (Auto) (0-100) /uL Sodium (137-145) mmol/L Potassium (3.4-5.1) mmol/L Chloride (98-107) mmol/L Carbon Dioxide (22-32) mmol/L BUN (7-17) mg/dL Creatinine (0.52-1.04) mg/dL Estimated GFR (>60) mL/min BUN/Creatinine Ratio (6-22) Glucose (80-110) mg/dL Lactate 1.4 (0.7-2.1) mmol/L Calcium (8.4-10.2) mg/dL Total Bilirubin (0.2-1.3) mg/dL AST (14-36) IU/L ALT (<35) IU/L Alkaline Phosphatase (38-126) U/L Total Protein (6.3-8.2) g/dL Albumin (3.5-5.0) g/dL Globulin (1.7-4.1) g/dL Albumin/Globulin Ratio (1.0-2.8) Procalcitonin 0.11 (<0.5) ng/mL Urine RBC (0-5/HPF) Urine WBC (0-5/HPF) Ur Squamous Epith Cells (0-5/HPF) Urine Bacteria (None) Ur Culture Indicated? Urine Dip Bedside Urine Glucose Negative Bedside Urine Bilirubin - Negative Bedside Urine Ketone - Negative Urine Specific [place] 1.010 Bedside Urine Occult Blood - Negative Bedside Urine pH 6.5 Bedside Urine Protein - Negative Bedside Urine Urobilinogen - Negative Bedside Urine Nitrite - Negative Bedside Urine Leukocytes +++ 500 Esterase Discharge Plan Departure Patient Disposition: Home Clinical Impression: Acute UTI Discharge Date/Time: 05/23/20 21:03 Instructions: DI for Urinary Tract Infection (UTI) Activity Restrictions/Additional Instructions: You have been diagnosed with [urinary tract infection. You were medicated with IV fluid, Tylenol, Toradol and IV Rocephin ED. Normal white count and blood count including lactate and procalcitonin indicating severe infection or anemia. Today's platelet count was very mildly decreased to 135. Mildly decreased sodium and chloride as 134 and 97 with normal kidney function test. Mildly elevated liver function test of AST of 57 and ALT of 69. Urine test indicates infection and urine culture is pending.]. What to do: *Take your medications as directed. Please start Keflex tomorrow and continue with twice a day for next 7 days. You receive a phone call if you require different antibiotic medication for urine culture test. Keflex has been transmitted--> [facility]. Please hydrate well and you can add electrolyte in your drink. You can also Tylenol and ibuprofen as needed for discomfort, fever. *Follow up with your primary care provider in 2-3 days, call for an appointment. Let them know you were seen in the ED and that we asked you to be seen in follow up. *Return to ED if you have any new, worsening, or concerning symptoms, such as [flank pain, fever and chills, chest pain, breathing difficulty, unusual behavior, feeling like fainting, unable to tolerate fluids or medications, flank pain or any acute concerns]. Prescriptions: New cephalexin [Keflex] 500 mg capsule 500 mg PO BID 7 Days Qty: 14 RF: 0 No Action aspirin [Tavon Advanced] 500 MG tablet 250 mg PO Q DAY Qty: 0 RF: 0 (DME) Disabled Parking Permit 0 .ROUTE .MEDSUPPLY Qty: 1 RF: 0 duloxetine 20 mg capsule,delayed release(DR/EC) 20 mg PO .COMPLEX MDD 60 mg Qty: 90 RF: 5 estradiol 0.01 % (0.1 mg/gram) cream See Rx Instructions .ROUTE .COMPLEX Qty: 42.5 RF: 2 atenolol 25 mg tablet 25 mg PO DAILY RF: 0 lisinopril 30 mg tablet 30 mg PO DAILY RF: 0 hydrochlorothiazide 12.5 mg capsule 12.5 mg PO DAILY RF: 0 estradiol 1 mg tablet 1 mg PO .every other day RF: 0 simvastatin 10 mg tablet 10 mg PO BEDTIME RF: 0 gabapentin 100 mg capsule 100 mg PO BID MDD 1-3 up to twice a day Qty: 120 RF: 2 Referrals: Chela Blackwell MD [Primary Care Provider] - <Meño Strong DO - Last Filed: 05/23/20 23:09> Cosign ED Attending Cosignature Attestation: I was immediately available in the department for consultation. This documentation has been reviewed and I agree with assessment and plan. Supervised by Meño Strong DO
[2020-05-23] MEDS: SODIUM CHLORIDE 0.9% 500 ML 1000 ML IV (19:41)
[2020-05-23] MEDS: ACETAMINOPHEN 325 MG TABLET 650 MG PO (19:42)
[2020-05-23 19:43] LABS: RBC Urine None Seen (0-5/HPF)
[2020-05-23 19:50] LABS: Add Manual Diff / Slide Review NO; Basophils Absolute Auto 100 /uL (0-100); Basophils Percent Auto 0.9 % (0-2); Eosinophils Absolute Auto 100 /uL (0-450); Eosinophils Percent Auto 1.8 % (2-4); Hematocrit 44.2 % (36-46); Hemoglobin 15.1 g/dL (12.0-16.0); Lymphocytes Absolute Auto 2700 /uL (1100-4500); Lymphocytes Percent Auto 44.9 % (25-40); Mean Corpuscular HGB Conc 34.1 % (30-36); Mean Corpuscular Hemoglobin 33.5 PG (26-34); Mean Corpuscular Volume 98.1 fL (80-100); Monocytes Absolute Auto 700 /uL (0-900); Monocytes Percent Auto 12.4 % (3-14); Neutrophils Absolute Auto 2400 /uL (1500-7000); Platelet Count 135 X10^3/uL (150-400); Red Blood Cell Count 4.51 X10^6/uL (4.0-5.2); Red Cell Distribution Width 13.1 % (11.6-14.8)
[2020-05-23 19:55] LABS: Bacteria Urine Moderate (10-30); Culture Indicated Urine Specimen Cultured; Squamous Epithelial Cell Urine 1-5 /HPF (0-5/HPF); WBC Urine 10-30/HPF (0-5/HPF)
[2020-05-23 20:05] LABS: Alanine Aminotransferase 69 IU/L (<35); Albumin Globulin Ratio 1.1 (1.0-2.8); Alkaline Phosphatase 69 U/L (38-126); Aspartate Aminotransferase 57 IU/L (14-36); BUN Creatinine Ratio 23.9 (6-22); Bilirubin Total 0.6 mg/dL (0.2-1.3); Blood Urea Nitrogen 16 mg/dL (7-17); Calcium 9.4 mg/dL (8.4-10.2); Carbon Dioxide 31 mmol/L (22-32); Chloride 97 mmol/L (98-107); Estimated Glomerular Filt Rate > 60.0 mL/min (>60); Globulin 3.7 g/dL (1.7-4.1); Glucose 151 mg/dL (80-110); HEMOLYSIS 35 (0-50); Potassium 3.7 mmol/L (3.4-5.1); Sodium 134 mmol/L (137-145); Total Protein 7.7 g/dL (6.3-8.2)
[2020-05-23 20:16] LABS: Lactate (Lactic Acid) 1.4 mmol/L (0.7-2.1)
[2020-05-23 20:21] LABS: Procalcitonin 0.11 ng/mL (<0.5)
[2020-05-23] MEDS: KETOROLAC 60 MG/2 ML VIAL 15 MG IV (20:22)
[2020-05-23] MEDS: CEFTRIAXONE 1 GM/50 ML FROZ.PIGGY IV (20:23)
--- NOTE | 2020-05-24 08:28 | PC.NURSE ---
called in keflex to [facility] because [facility] is closed today per spouse.
== END 2020-05-23 21:03 | disposition home or self-care (01) ==
PROVIDERS: Emergency Provider Nurse Practitioner Family; Family Provider Student in an Organized Health Care Education/Training Program; PCP Student in an Organized Health Care Education/Training Program
DX: N39.0 Urinary tract infection, site not specified (principal)
CPT/HCPCS: 36415; 80053; 81003; 81015; 83605; 84145; 85025; 87040; 87077; 87086; 87186; 96361; 96365; 96375; 99284; J1885

== ENCOUNTER → 2021-01-10 11:11 | Outpatient (CLI) | payer OTHER, SELFPAY ==
--- NOTE | 2021-01-10 11:12 | DI.MG.S_ITS ---
BILATERAL DIGITAL SCREENING MAMMOGRAM 3D/2D WITH CAD: 01/10/2021 CLINICAL: Routine screening. Comparison is made to exams dated: 01/02/2019 mammogram, 12/29/2017 mammogram, and 12/08/2016 mammogram - [facility]. There are scattered fibroglandular elements in both breasts. Current study was also evaluated with a Computer Aided Detection (CAD) system. There are benign calcifications in both breasts. No significant masses, calcifications, or other findings are seen in either breast. There has been no significant interval change. IMPRESSION: BENIGN There is no mammographic evidence of malignancy. A 1 year screening mammogram is recommended. This exam was interpreted at Station ID: [id number]. NOTE: For mammograms, a report in lay terms will be sent to the patient. Approximately 15% of breast malignancies will not be visualized mammographically. In the management of a palpable breast mass, a negative mammogram must not discourage biopsy of a clinically suspicious lesion. Electronically Signed By: Evelyn busch/nataliia:01/10/2021 19:29:37 letter sent: Normal Exam ACR BI-RADS Category 2: Benign Finding(s) [id number]
== END ==
PROVIDERS: Family Provider Student in an Organized Health Care Education/Training Program; PCP Internal Medicine; Referring Provider Student in an Organized Health Care Education/Training Program; Visit Provider Student in an Organized Health Care Education/Training Program
DX: Z12.31 Encounter for screening mammogram for malignant neoplasm of breast (principal)
CPT/HCPCS: 77063; 77067

== ENCOUNTER 2021-08-30 20:02 | Emergency (ER) | payer OTHER, SELFPAY ==
[2021-08-30 20:11] VITALS: BP 142/71; PULSE 81; RESP 15; TEMP 36.2; O2SAT 95; BMI 37.1
== END 2021-08-30 20:42 | disposition left against medical advice (07) ==
PROVIDERS: Emergency Provider Emergency Medicine; Family Provider Student in an Organized Health Care Education/Training Program; PCP Internal Medicine
DX: Z98.890 Other specified postprocedural states (principal); W19.XXXA Unspecified fall, initial encounter
CPT/HCPCS: 99281

== ENCOUNTER → 2022-03-28 06:53 | Outpatient (CLI) | payer OTHER, SELFPAY ==
--- NOTE | 2022-03-28 | DI.MRI.S_ITS ---
PROCEDURE: MR LUMBAR SPINE WO CON INDICATIONS: Radiculopathy, lumbar region TECHNIQUE: Noncontrast sagittal T1 spin echo and T2 fast echo, sagittal STIR, and T2 fast spin echo through the lumbar spine. In cases with scoliosis, additional coronal T2 fast spin echo may be performed. COMPARISON: [facility], MR, MR LUMBAR SPINE WO CON, 09/12/2018, 19:08. FINDINGS: Image quality: Excellent. Normal lumbar vertebral body height and alignment. There is no suspicious focal marrow signal abnormality. Normal position and appearance of the conus. From T12-L1 through L2-L3 there is no significant spinal canal or neural foraminal stenosis. At L3-L4, diffuse disc bulge flattens the ventral thecal sac without mass effect upon the traversing L4 nerve roots. Foraminal components of the disc bulge and facet hypertrophy combine to produce mild bilateral neural foraminal stenosis. At L4-L5, periarticular bone marrow and soft tissue edema adjacent to the right L4-L5 facet, with moderate and degenerative changes of the facet characterized by joint space narrowing with a joint effusion, marginal osteophytosis, subchondral sclerosis and cystic change. There is an unchanged synovial cyst protruding anteriorly and medially from the the medial margin of the facet, producing severe subarticular zone stenosis with likely impingement upon the descending right L5 nerve roots. A diffuse disc bulge with a superimposed extrusion further contributes to spinal canal and subarticular zone narrowing at this level. Foraminal components of the disc bulge and facet hypertrophy combine to produce mild left and moderate right neural foraminal stenosis with flattening of the exiting right L4 nerve root. At L5-S1, no spinal canal stenosis or neural foraminal stenosis. 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 The size of the synovial cyst is unchanged from the comparison study. Reactive marrow edema and periarticular edema in association with acute moderate facet osteoarthropathy at L4-L5 on the right. Moderate right neural foraminal narrowing at L4-L5 with flattening of the exiting right L4 nerve root. Dictated by: Jaren Flowers M.D. on 03/28/2022 at 9:09 Approved by: Jaren Flowers M.D. on 03/28/2022 at 9:14
== END ==
PROVIDERS: Family Provider Student in an Organized Health Care Education/Training Program; PCP Internal Medicine
DX: M47.26 Other spondylosis with radiculopathy, lumbar region (principal); M48.061 Spinal stenosis, lumbar region without neurogenic claudication; M71.38 Other bursal cyst, other site; Z98.890 Other specified postprocedural states
CPT/HCPCS: 72148

== ENCOUNTER 2024-02-25 10:22 | Emergency (ER) | payer OTHER, SELFPAY ==
[2024-02-25 10:46] VITALS: BP 173/81; PULSE 102; RESP 16; TEMP 36.3; O2SAT 94; BMI 35.5
== END 2024-02-25 14:06 | disposition left against medical advice (07) ==
PROVIDERS: Emergency Provider Student in an Organized Health Care Education/Training Program; Family Provider Student in an Organized Health Care Education/Training Program; PCP Internal Medicine
DX: M54.9 Dorsalgia, unspecified (principal)
CPT/HCPCS: 99281